=== PATIENT | male | born 1950 | race Two or more races ===

== ENCOUNTER 2017-09-20 20:58 | Emergency (ER) | payer MEDICARE, MEDICAID ==
--- NOTE | 2017-09-20 22:09 | EDM.PDOC ---
ED HPI GENERAL MEDICAL PROBLEM - General Chief Complaint: Behavioral/Psych Stated Complaint: MEDICAL VIA [facility] Time Seen by Provider: 09/20/17 22:00 Source of Information: Reports: Patient, EMS, Other (counselor) History Limitations: Reports: Other (no records, patient too intoxicated to be a reliable historian.) - History of Present Illness INITIAL COMMENTS - FREE TEXT/NARRATIVE: 66 yo NA male was sent from [place], [place] to [place] for detox. He had consumed a liter of vodka within an hour of his arrival to the ER so his BA there was not all that high. En route to [place] he became markedly more incapacitated and was unable to walk upon arrival so they send him via EMS to our ER to be stabilized. Denies ingestion of anything other than ETOH. Onset: Today Onset Date: 09/20/17 Onset Time: 19:00 Duration: Hour(s):, Improving Location: Reports: Generalized Quality: Reports: Other (no pain) Severity: Moderate Improves with: Reports: Other (time) Worsens with: Reports: Other (alcohol consumption.) Context: Reports: Other (hx of alcohol abuse.) Associated Symptoms: Reports: Nausea/Vomiting Treatments [employer]: Reports: Other (see below) (none) - Related Data Allergies Allergy/AdvReac Type Severity Reaction Status Date / Time lisinopril Allergy Other Verified 09/20/17 21:43 Social & Family History - Tobacco Use Smoking Status *Q: Current Every Day Smoker Years of Tobacco use: 46 Packs/Tins Daily: 2 - Alcohol Use Days Per Week of Alcohol Use: 7 Number of Drinks Per Day: 10 Total Drinks Per Week: 70 - Recreational Drug Use Recreational Drug Use: No ED ROS GENERAL - Review of Systems Review Of Systems: See Below Constitutional: Reports: No Symptoms HEENT: Reports: No Symptoms Respiratory: Reports: No Symptoms Cardiovascular: Reports: No Symptoms GI/Abdominal: Reports: Nausea, Vomiting. Denies: Black Stool, Bloody Stool, Constipation, Diarrhea, Hematemesis, Hematochezia, Melena : Reports: No Symptoms Skin: Reports: No Symptoms Neurological: Reports: Difficulty Walking Psychiatric: Reports: Other (alcohol intox) - Physical Exam Exam: See Below Exam Limited By: No Limitations General Appearance: Alert, WD/WN, No Apparent Distress, Obese Eye Exam: Bilateral Eye: Normal Inspection Ears: Normal External Exam, Normal Canal, Hearing Grossly Normal Nose: Normal Inspection, Normal Mucosa, No Blood Throat/Mouth: Normal Inspection, Normal Lips, Normal Oropharynx, Normal Voice, No Airway Compromise Head Exam: Atraumatic, Normocephalic Neck: Normal Inspection Respiratory/Chest: No Respiratory Distress, Lungs Clear, Normal Breath Sounds, No Accessory Muscle Use Cardiovascular: Regular Rate, Rhythm, No Edema GI/Abdominal: Normal Bowel Sounds, Soft, Non-Tender, No Distention Neuro Exam (Abbreviated): Alert, CN II-XII Intact, No Motor/Sensory Deficits, Other (intoxicated with alcohol) Back Exam: Normal Inspection Extremities: Normal Inspection, Normal Range of Motion, Non-Tender, No Pedal Edema Psychiatric: Normal Affect, Normal Mood Skin Exam: Warm, Dry, Intact, Normal Color, No Rash Course - Vital Signs Text/Narrative:: Refused by Justino verdin and Ledy Mas. His counselor is going to take him home to [facility]. Last Recorded V/S: Last Vital Signs Temp 36.6 C 09/20/17 21:48 Pulse 77 09/20/17 21:48 Resp 18 09/20/17 21:48 BP 104/70 09/20/17 21:48 Pulse Ox 92 L 09/20/17 21:48 - Orders/Labs/Meds Labs: Laboratory Tests 09/20/17 Range/Units 22:00 Ethyl Alcohol 288 mg/dL Departure - Departure Time of Disposition: 23:45 Disposition: Home, Self-Care 01 Condition: Fair Clinical Impression: Alcohol abuse Alcohol intoxication Qualifiers: Complication of substance-induced condition: uncomplicated Qualified Code(s): F10.920 - Alcohol use, unspecified with intoxication, uncomplicated - Discharge Information *PRESCRIPTION DRUG MONITORING PROGRAM REVIEWED*: Not Applicable *COPY OF PRESCRIPTION DRUG MONITORING REPORT IN PATIENT KITTY: Not Applicable Instructions: Alcohol Use Disorder, Alcohol Intoxication, [id number] Referrals: PCP,None [Primary Care Provider] - Forms: ED Department Discharge Additional Instructions: Work with his counselors/family doctor to get him help for his drinking.
== END 2017-09-20 23:59 | disposition home or self-care (01) ==
LOC: JP.ED 20:58
DX: F10.120 Alcohol abuse with intoxication, uncomplicated (principal); F17.210 Nicotine dependence, cigarettes, uncomplicated; Z88.8 Allergy status to other drugs, medicaments and biological substances; Y90.8 Blood alcohol level of 240 mg/100 ml or more
CPT/HCPCS: 36415; 99284; G0480